=== PATIENT | male | born 1945 | race Caucasian/White ===

== ENCOUNTER 2024-02-18 07:39 | Day surgery (SDC) | payer MEDICARE, BC ==
[~2024-02-18 07:39] MED LIST: Sodium Chloride 0.9% 10 ML Syringe FLUSH PRN; Sodium Chloride 0.9% 10 ML Syringe FLUSH SCH
[2024-02-18] MEDS: Lactated Ringers 1,000 ML IV SCH (08:00)
[2024-02-18] MEDS ORDERED: Lidocaine 1% 4 ML ONE (08:27)
[2024-02-18] MEDS ORDERED: Propofol 200 MG/20 ML SDV ONE ×2 (08:27→08:32)
[2024-02-18 11:17] VITALS: BP 110/64; PULSE 60
== END 2024-02-18 10:55 | disposition home or self-care (01) ==
LOC: JD.SDS 07:39
PROVIDERS: ATTEND Surgery
DX: Z12.11 Encounter for screening for malignant neoplasm of colon (principal); D12.3 Benign neoplasm of transverse colon; D12.4 Benign neoplasm of descending colon; K29.50 Unspecified chronic gastritis without bleeding; K31.7 Polyp of stomach and duodenum; K44.9 Diaphragmatic hernia without obstruction or gangrene; K21.9 Gastro-esophageal reflux disease without esophagitis; K57.30 Diverticulosis of large intestine without perforation or abscess without bleeding; E11.9 Type 2 diabetes mellitus without complications; I10 Essential (primary) hypertension; E78.5 Hyperlipidemia, unspecified; I25.10 Atherosclerotic heart disease of native coronary artery without angina pectoris; N40.0 Benign prostatic hyperplasia without lower urinary tract symptoms; F17.200 Nicotine dependence, unspecified, uncomplicated; Z79.84 Long term (current) use of oral hypoglycemic drugs; Z79.899 Other long term (current) drug therapy
CPT/HCPCS: 43239; 45380; J2704; J7120; 00813; 99100; J3490